=== PATIENT | female | born 1960 | race Caucasian/White ===

== ENCOUNTER 2022-04-01 22:25 | Emergency (ER) | payer OTHER, SELFPAY ==
[~2022-04-01 22:25] MED LIST: Iopamidol 300 61% 100 ML VIAL FS ONE
[2022-04-01 23:10] LABS: #Basophils 0.1 10x3/uL (0.0-0.2); #Eosinphils 0.2 10x3/uL (0.0-0.5); #Monocytes 0.5 10x3/uL (0.0-1.1); #Neutrophils 3.8 10x3/uL (1.5-8.4); %Basophils 0.8 % (0.0-2.0); %Eosinophils 2.2 % (0.0-6.0); %Lymphocytes 40.6 % (18.0-47.0); %Monocytes 6.1 % (0.0-10.0); %Neutrophils 49.9 % (40.0-75.0); Hemoglobin 13.1 g/dL (12.0-15.5); Mean Corpuscular HGB CONC 34.1 g/dL (32.0-36.0); Mean Corpuscular Volume 87.9 fl (81.6-98.3); Mean Platelet Volume 8.6 fl (7.4-10.4); Platelet Count 360 10x3/uL (150-450); RBC Distribution Width 12.9 % (11.5-14.5); Red Blood Cell (RBC) Count 4.37 10x6/uL (3.90-5.03); White Blood Cell (WBC) Count 7.7 10x3/uL (3.5-10.5)
[2022-04-01 23:13] LABS: Bilirubin Neg (Negative); Blood, Urine Negative (Negative); Clarity Clear (Clear); Glucose, Urine (Dipstick) Normal (Negative); Ketone, Urine Negative (Negative); Leukocyte Negative (Negative); Nitrite Negative (Negative); Protein, Urine (Dipstick) 15 mg/dl (Neg-Trace); Specific Gravity, Urine 1.025 (1.002-1.036); Urobilinogen Normal mg/dL (Less than 2)
[2022-04-01 23:26] LABS: ALT (SGPT) 30 U/L (8-55); AST (SGOT) 25 U/L (5-34); Albumin 4.3 g/dL (3.4-4.8); Alkaline Phosphatase 96 U/L (40-110); Anion Gap 13 mmol/L (10-20); BUN (Urea Nitrogen) 24 mg/dL (9.8-20.1); Bilirubin, Total 0.6 mg/dL (0.2-1.2); Calc. Creatinine Clearance 0 mL/min (70-130); Calcium 9.3 mg/dL (7.8-10.44); Carbon Dioxide 23 mmol/L (23-31); Chloride 105 mmol/L (98-107); Estimated GFR 78; Globulin 2.8 g/dL (2.4-3.5); Glucose 94 mg/dL (80-115); Lipase 36 U/L (8-78); Potassium 3.9 mmol/L (3.5-5.1); Protein, Total 7.1 g/dL (5.8-8.1); Sodium 137 mmol/L (136-145)
== END 2022-04-02 01:19 | disposition home or self-care (01) ==
LOC: CSHERS 22:25
DX: K76.89 Other specified diseases of liver (principal); I10 Essential (primary) hypertension; R53.1 Weakness
CPT/HCPCS: 74177; 80053; 81003; 83690; 85025; 87086; Q9967

== ENCOUNTER 2022-06-15 22:00 | Inpatient (IN) | payer SELFPAY ==
[2022-06-15 22:33] LABS: #Eosinphils 0.2 10x3/uL (0.0-0.5); #Monocytes 0.5 10x3/uL (0.0-1.1); #Neutrophils 4.6 10x3/uL (1.5-8.4); %Basophils 0.5 % (0.0-2.0); %Eosinophils 3.1 % (0.0-6.0); %Lymphocytes 7.5 % (18.0-47.0); %Monocytes 8.6 % (0.0-10.0); %Neutrophils 80.1 % (40.0-75.0); Hemoglobin 12.6 g/dL (12.0-15.5); Mean Corpuscular HGB CONC 34.1 g/dL (32.0-36.0); Mean Corpuscular Hemoglobin 30.3 pg (27.0-33.0); Mean Corpuscular Volume 88.7 fl (81.6-98.3); Mean Platelet Volume 8.9 fl (7.4-10.4); Platelet Count 205 10x3/uL (150-450); RBC Distribution Width 13.1 % (11.5-14.5); Red Blood Cell (RBC) Count 4.16 10x6/uL (3.90-5.03); White Blood Cell (WBC) Count 5.7 10x3/uL (3.5-10.5)
[2022-06-15] MEDS ORDERED: methylPREDNISolone Sod Succ/PF 125 MG/2 ML VIAL ONE (22:42)
[2022-06-15] MEDS ORDERED: Albuterol Sulfate 2.5 mg/3 ml Neb ONE (22:42)
[2022-06-15] MEDS ORDERED: Ipratropium Bromide 2.5 ml Neb ONE (22:43)
[2022-06-15 22:48] LABS: ALT (SGPT) 29 U/L (8-55); AST (SGOT) 39 U/L (5-34); Albumin 4.1 g/dL (3.4-4.8); Alkaline Phosphatase 120 U/L (40-110); Anion Gap 13 mmol/L (10-20); BUN (Urea Nitrogen) 12 mg/dL (9.8-20.1); Calc. Creatinine Clearance 0 mL/min (70-130); Calcium 8.8 mg/dL (7.8-10.44); Carbon Dioxide 22 mmol/L (23-31); Chloride 106 mmol/L (98-107); Estimated GFR 86; Globulin 2.6 g/dL (2.4-3.5); Glucose 101 mg/dL (80-115); Potassium 3.6 mmol/L (3.5-5.1); Protein, Total 6.7 g/dL (5.8-8.1); Sodium 137 mmol/L (136-145)
[2022-06-15 23:51] LABS: SARS-CoV-2 NAA Rapid Test Not Detected (NotDetected)
[2022-06-16] MEDS ORDERED: Calcium Carbonate 500 MG ChewTAB PO PRN (01:54)
[2022-06-16] MEDS ORDERED: HYDROcodone/Acetaminophen 5/325 mg Tablet PO PRN (01:54)
[2022-06-16] MEDS ORDERED: Guaifenesin DM 100-10/5 ML UDCUP PO PRN (01:54)
[2022-06-16] MEDS ORDERED: Senokot S 8.6-50 MG TAB PO PRN (01:54)
[2022-06-16] MEDS ORDERED: Ondansetron PF 4 MG/2 ML Vial IVP PRN (01:54)
[2022-06-16] MEDS ORDERED: Lactated Ringer's 500 ML IV SCH ×2 (02:00→03:45)
[2022-06-16] MEDS: Acetaminophen 325 MG TAB PO PRN ×2 (03:36→07:44)
[2022-06-16 04:04] VITALS: BMI 29.0
[2022-06-16 04:26] LABS: Anion Gap 14 mmol/L (10-20); BUN (Urea Nitrogen) 13 mg/dL (9.8-20.1); CRP (Inflammatory) 1.68 mg/dL (= or < 0.5); Calc. Creatinine Clearance 97 mL/min (70-130); Calcium 8.8 mg/dL (7.8-10.44); Carbon Dioxide 20 mmol/L (23-31); Chloride 106 mmol/L (98-107); Estimated GFR 85; Glucose 169 mg/dL (80-115); Potassium 3.7 mmol/L (3.5-5.1); Sodium 136 mmol/L (136-145)
[2022-06-16 04:32] LABS: Bilirubin Neg (Negative); Blood, Urine 10 (Negative); Clarity Clear (Clear); Glucose, Urine (Dipstick) Normal (Negative); Ketone, Urine Negative (Negative); Leukocyte Negative (Negative); Nitrite Negative (Negative); Protein, Urine (Dipstick) 15 mg/dl (Neg-Trace); Urobilinogen Normal mg/dL (Less than 2)
[2022-06-16 05:00] LABS: RBC/HPF 0-3 HPF (0-3); Urine Culture Reflex No No; WBC/HPF None Seen HPF (0-3)
[2022-06-16 05:02] LABS: Squamous Epithelial None Seen HPF (0-3)
[2022-06-16 05:03] LABS: Bacteria/HPF None Seen HPF (None Seen)
[2022-06-16 05:34] LABS: Legionella Urinary Ag Negative (Negative)
[2022-06-16 05:35] LABS: Strep pneumo Urine Ag NEGATIVE (NEGATIVE)
[2022-06-16] MEDS: Dexamethasone 4 mg/ml Vial SLOW IVP SCH ×2 (05:56→18:19)
[2022-06-16] MEDS: Enoxaparin Sodium 40 MG/0.4 ML SYRINGE SC SCH (07:44)
[2022-06-16] MEDS: Benzonatate 100 MG CAP PO SCH ×3 (07:44→21:44)
[2022-06-16] MEDS ORDERED: FLU VACC QS2022-23(6MOS UP)/PF 60 MCG/0.5 ML SYRINGE IM ONE (09:00)
[2022-06-16] MEDS: Ketorolac Tromethamine 30 MG/ML VIAL IVP PRN ×2 (12:27→18:20)
[2022-06-16] MEDS ORDERED: Iopamidol 370 76% 100 ML VIAL ONE (13:44)
[2022-06-17] MEDS: Ketorolac Tromethamine 30 MG/ML VIAL IVP PRN (00:45)
[2022-06-17] MEDS: Dexamethasone 4 mg/ml Vial SLOW IVP SCH (05:34)
[2022-06-17] MEDS: Acetaminophen 325 MG TAB PO PRN (08:02)
[2022-06-17] MEDS: Benzonatate 100 MG CAP PO SCH (08:02)
[2022-06-17] MEDS: Enoxaparin Sodium 40 MG/0.4 ML SYRINGE SC SCH (08:02)
[2022-06-17 12:05] VITALS: BP 140/69; TEMP 98.7
== END 2022-06-17 13:05 | disposition home or self-care (01) | DRG 189 ==
LOC: CSHERS 22:00 → CSHTELE 06-16 03:29
PROVIDERS: ADMIT Student in an Organized Health Care Education/Training Program; ATTEND Family Medicine
DX: J96.01 Acute respiratory failure with hypoxia (principal); R65.10 Systemic inflammatory response syndrome (SIRS) of non-infectious origin without acute organ dysfunction; I50.30 Unspecified diastolic (congestive) heart failure; Z20.822 Contact with and (suspected) exposure to COVID-19; G89.29 Other chronic pain; F90.9 Attention-deficit hyperactivity disorder, unspecified type; R07.81 Pleurodynia; Z98.1 Arthrodesis status; Z88.1 Allergy status to other antibiotic agents; Z88.8 Allergy status to other drugs, medicaments and biological substances; Z88.6 Allergy status to analgesic agent; Z79.899 Other long term (current) drug therapy; Z87.440 Personal history of urinary (tract) infections
CPT/HCPCS: 36415; 71045; 71275; 80048; 80053; 81001; 83880; 84145; 84484; 85025; 85379; 86140; 87449; 87804; 87899; 93005; 93306; 94640; 94760; 96374; J1100; J1650; J1885; J2930; J7120; J7611; J7620; Q9967; U0002; U0003; U0005

== ENCOUNTER 2024-08-26 22:42 | Emergency (ER) | payer MEDICARE, BC ==
[2024-08-26 23:26] LABS: Bilirubin Neg (Negative); Blood, Urine Negative (Negative); Clarity Clear (Clear); Glucose, Urine (Dipstick) Normal (Negative); Ketone, Urine Negative (Negative); Leukocyte 25 (Negative); Nitrite Negative (Negative); Protein, Urine (Dipstick) 15 mg/dl (Neg-Trace); Specific Gravity, Urine 1.025 (1.005-1.030); Urobilinogen Normal mg/dL (Less than 2)
[2024-08-26 23:28] LABS: #Basophils 0.04 10x3/uL (0.0-0.2); #Monocytes 0.37 10x3/uL (0.0-1.1); #Neutrophils 2.56 10x3/uL (1.5-8.4); %Basophils 0.7 % (0.0-2.0); %Eosinophils 3.6 % (0.0-6.0); %Lymphocytes 42.3 % (18.0-47.0); %Monocytes 6.7 % (0.0-10.0); %Neutrophils 46.5 % (40.0-75.0); Hematocrit 35.2 % (34.9-44.5); Hemoglobin 12.1 g/dL (12.0-15.5); Mean Corpuscular HGB CONC 34.4 g/dL (32.0-36.0); Mean Corpuscular Volume 90.3 fL (81.6-98.3); Mean Platelet Volume 8.3 fL (7.4-10.4); Platelet Count 247 10x3/uL (150-450); RBC Distribution Width 12.6 % (11.5-14.5); White Blood Cell (WBC) Count 5.51 10x3/uL (3.5-10.5)
[2024-08-26 23:44] LABS: ALT (SGPT) 17 U/L (Less than 34); AST (SGOT) 28 U/L (11-34); Albumin 4.2 g/dL (3.1-4.5); Alkaline Phosphatase 64 U/L (40-110); Anion Gap 10 mmol/L (10-20); BUN (Urea Nitrogen) 27 mg/dL (9.8-20.1); Bilirubin, Total 0.5 mg/dL (0.3-1.2); Calc. Creatinine Clearance 0 mL/min (70-130); Calcium 9.4 mg/dL (7.8-10.44); Carbon Dioxide 27 mmol/L (23-31); Chloride 105 mmol/L (98-107); Estimated GFR 71; Globulin 2.7 g/dL (2.4-3.5); Glucose 85 mg/dL (80-115); Potassium 4.2 mmol/L (3.5-5.1); Protein, Total 6.9 g/dL (5.8-8.1); Sodium 138 mmol/L (136-145)
[2024-08-26 23:50] LABS: Bacteria/HPF 1+ HPF (None Seen); CAUTI Indications for Culture Pelvic or flank pain; Mucous/LPF Rare LPF (<2+); RBC/HPF 0-3 HPF (0-3); Squamous Epithelial 0-3 HPF (0-3)
[2024-08-26 23:51] LABS: Urine Culture Reflex No No
[2024-08-26 23:51] LABS: Troponin I Less than 0.010 ng/mL (< 0.028)
== END 2024-08-27 01:00 | disposition home or self-care (01) ==
LOC: CSHERS 22:42
DX: R00.2 Palpitations (principal); N93.9 Abnormal uterine and vaginal bleeding, unspecified
CPT/HCPCS: 36415; 71045; 80053; 81001; 84443; 84484; 85025; 93005